=== PATIENT | male | born 1980 | race African-American/Black ===

== ENCOUNTER 2017-12-18 14:00 | Inpatient (IN) | payer OTHER ==
[2017-12-18] MEDS ORDERED: Lidocaine 2% VISCOUS* 15 ML UDC PO ONE (14:57)
[2017-12-18] MEDS ORDERED: Al Hydrox/Mg Hydrox/Simet LIQ* 30 ML UDC PO ONE (14:57)
[2017-12-18 15:26] LABS: ABS Basophils 0.1 10^3/ul (0-0.2); ABS Eosinophils 0.1 10^3/ul (0-0.6); ABS Lymphocytes 1.1 10^3/ul (1.0-4.8); ABS Monocytes 1.2 10^3/ul (0-0.8); ABS Neutrophils 6.4 10^3/ul (1.5-7.7); ABS Nucleated RBC 0 10^3/ul; Eosinophil % 0.7 % (0-6); Hematocrit 41 % (42-52); Hemoglobin 13.9 g/dl (14.0-18.0); Lymphocyte % 12.4 % (25-47); Mean Corpuscular HGB Conc 34 g/dl (31-36); Mean Corpuscular Hemoglobin 30 pg (27-31); Mean Corpuscular Volume 87 fL (80-94); Mean Platelet Volume 8 um3 (7.4-10.4); Nucleated Red Blood Cells % 0; Platelet Count 236 10^3/ul (150-450); Red Blood Count 4.72 10^6/ul (4.0-5.4); Red Cell Distribution Width 13 % (10.5-15); White Blood Count 8.7 10^3/ul (3.5-10.8)
[2017-12-18 15:32] LABS: EGFR Non-African American 103.1 (>60)
--- NOTE | 2017-12-18 15:48 | RAD ---
HISTORY: Right upper quadrant pain COMPARISONS: None TECHNIQUE: Multiple transverse and longitudinal ultrasound images were obtained of the right upper quadrant of the abdomen using grayscale and color Doppler imaging. FINDINGS: LIVER: There are multiple echogenic lesions of the liver, measuring up to 2.1 cm in size. There is normal hepatopedal flow of the portal vein on Doppler imaging. BILIARY TREE: There is no intrahepatic or extrahepatic biliary dilatation. The common duct measures 0.4 cm. GALLBLADDER: There is sludge within the gallbladder. There is gallbladder wall thickening. There is a stone in the gallbladder neck. There is a positive sonographic Castro sign. PANCREAS: The head of the pancreas is unremarkable. The tail of the pancreas is not well visualized secondary to overlying bowel gas. RIGHT KIDNEY: The right kidney is normal in shape, size, contour, and echogenicity. There is no hydronephrosis or nephrolithiasis. The right kidney measures 10.6 x 4.9 x 4.6 cm. AORTA AND IVC: The aorta and IVC are unremarkable. FLUID: There are no pleural effusions. There is no free fluid within the hepatorenal recess. OTHER FINDINGS: None. IMPRESSION: 1. ACUTE CHOLECYSTITIS. 2. MULTIPLE ECHOGENIC LIVER LESIONS MOST SUGGESTIVE OF HEMANGIOMAS. CONSIDER FURTHER EVALUATION WITH MULTIPHASE LIVER PROTOCOL CT IN THE NONACUTE SETTING
[2017-12-18] MEDS ORDERED: NS 0.9% 1000 ML* 1,000 ML IV ONE (16:07)
[2017-12-18] MEDS ORDERED: Ciprofloxacin 400MG IVPREMIX(* 400 MG/200 ML BAG IVPB ONE (16:07)
[2017-12-18] MEDS ORDERED: Morphine INJ* 4 MG/ML 1 ML CARPUJECT IV ONE (16:07)
[2017-12-18] MEDS ORDERED: Ondansetron INJ* 2 MG/ML VIAL IV ONE (16:07)
[2017-12-18] MEDS ORDERED: Ondansetron INJ* 2 MG/ML VIAL IV PRN (17:02)
[2017-12-18] MEDS ORDERED: HYDROmorphone INJ* 1 MG/ML CARPUJECT SYRINGE IV SLOW PU PRN (17:02)
[2017-12-18] MEDS: ceFOXitin 2 GM IVPREMIX* 2 GM/50 ML BAG IVPB SCH ×3 (20:22→22:03)
[2017-12-18] MEDS: Pantoprazole IV* 40 MG IV SCH (20:39)
[2017-12-18] MEDS: Ketorolac INJ* 30 MG/ML 1 ML VIAL IV PUSH PRN (20:39)
--- NOTE | 2017-12-18 23:09 | HP ---
CC: [facility] HISTORY AND PHYSICAL: DATE OF ADMISSION: 12/18/17 CHIEF COMPLAINT: Right upper quadrant abdominal pain. HISTORY OF PRESENT ILLNESS: This is a 37-year-old incarcerated male originally from [facility]. He reports a 1-week history of epigastric pain, which has been partially relieved with antacids. He has also had 6 or 7 episodes of nausea and vomiting on the first day he had his pain. He had dinner last evening at 6 p.m. and reports that he started having severe stabbing right upper quadrant abdominal pain at about midnight. He was seen by medical staff at the facility and subsequently was transported to [facility] Emergency Room. He reports anorexia. There is no dysuria, hematuria or dark urine. He had a bowel movement yesterday with no diarrhea. PAST MEDICAL HISTORY: Significant for migraines, lactose intolerance. PAST SURGICAL HISTORY: None. MEDICATIONS: 1. Ibuprofen. 2. Antacids. 3. Zyrtec. 4. Nasal spray. ALLERGIES: None known. SOCIAL HISTORY: He is not a smoker. He has used alcohol in the past. He denies drug use. He is incarcerated at [place]. FAMILY HISTORY: Father at age 77 from complications of diabetes and renal failure. Mother has history of Crohn's disease and diverticulitis. One brother is alive and well. REVIEW OF SYSTEMS: Constitutional: As above. No documented fevers. No weight loss. Respiratory: No history of asthma or wheezing. Denies tuberculosis or cough. Cardiac: No chest pain, shortness of breath, or known heart problems. GI: As above. : As above. Endocrine: No history of thyroid disorder. He states that more than 3 years ago, he was told he was prediabetic by a physician. Hematologic: No easy bruising or bleeding. No history of blood clots. PAYROLL AND BENEFITS SPECIALIST: Migraines as above. No strokes or seizures. Musculoskeletal: No joint pain, bone pain, or muscular problems. PHYSICAL EXAMINATION VITAL SIGNS: Height 5 feet 8 inches, weight 164 pounds. Temperature 98.4 degrees Fahrenheit, pulse 72, respirations 19, blood pressure 129/82, O2 sat 98 % on room air. HEENT: Head is normocephalic and atraumatic. His sclerae are anicteric and mucous membranes are moist. There is no otorrhea. No rhinorrhea. His oropharynx is clear. His tongue is midline. His dentition is intact. NECK: Symmetrical with midline trachea and no palpable lymphadenopathy or masses. LUNGS: Clear to auscultation bilaterally without wheezes, rales, or rhonchi. HEART: Regular S1, S2. No murmurs, rubs, or gallops appreciated. ABDOMEN: Without scars. Bowel sounds are present. It is softly distended with tenderness in the right upper quadrant with positive Castro sign. No hepatomegaly or splenomegaly is appreciated. EXTREMITIES: Warm without cyanosis, clubbing, or edema. LABORATORY DATA: CBC shows normal WBC, hemoglobin 13.9, hematocrit 41, platelets are 236,000. No shift. Chemistries: Electrolytes are normal except chloride low at 100. Total bilirubin normal. AST normal. ALT elevated at 55. Alkaline phosphatase elevated at 129 and C-reactive protein elevated at 170. Albumin and lipase are normal. RADIOGRAPHIC DATA: His ultrasound images were reviewed from 12/18/17. He is noted to have echogenic lesions suspicious for hemangiomas. He has a gallstone in the gallbladder neck and thickened gallbladder wall with a common bile duct that is 0.4 cm. IMPRESSION: A 37-year-old male with acute cholecystitis. PLAN/RECOMMENDATIONS: The patient is admitted to [facility] for IV antibiotics and fluids. He will be kept n.p.o. He will receive intravenous analgesics. Due to his history of epigastric pain and I will also put him on PPI. Plan will be to perform laparoscopic cholecystectomy this admission, most likely on 12/20/17. [id number]/[facility] #: [id number] [facility]PIT[facility]ilke
[2017-12-19] MEDS: ceFOXitin 2 GM IVPREMIX* 2 GM/50 ML BAG IVPB SCH ×3 (03:29→20:03)
[2017-12-19] MEDS: Ketorolac INJ* 30 MG/ML 1 ML VIAL IV PUSH PRN ×2 (03:33→10:19)
[2017-12-19 05:02] LABS: ABS Basophils 0.1 10^3/ul (0-0.2); ABS Eosinophils 0.1 10^3/ul (0-0.6); ABS Lymphocytes 1.1 10^3/ul (1.0-4.8); ABS Monocytes 0.8 10^3/ul (0-0.8); ABS Neutrophils 5.1 10^3/ul (1.5-7.7); ABS Nucleated RBC 0 10^3/ul; Eosinophil % 1.4 % (0-6); Hematocrit 38 % (42-52); Hemoglobin 12.9 g/dl (14.0-18.0); Lymphocyte % 15.6 % (25-47); Mean Corpuscular HGB Conc 34 g/dl (31-36); Mean Corpuscular Hemoglobin 30 pg (27-31); Mean Corpuscular Volume 87 fL (80-94); Mean Platelet Volume 8 um3 (7.4-10.4); Nucleated Red Blood Cells % 0; Platelet Count 215 10^3/ul (150-450); Red Blood Count 4.36 10^6/ul (4.0-5.4); Red Cell Distribution Width 13 % (10.5-15); White Blood Count 7.2 10^3/ul (3.5-10.8)
[2017-12-19 05:19] LABS: EGFR Non-African American 101.7 (>60)
[2017-12-19 06:44] LABS: Urine Appearance Clear; Urine Blood 1+ (Negative); Urine Color Yellow; Urine Ketones 1+ (Negative); Urine Protein Negative (Negative); Urine Specific Gravity 1.019 (1.010-1.030); Urine Urobilinogen Negative (Negative)
[2017-12-19] MEDS ORDERED: SUMAtriptan SQ* 6 MG/0.5 ML VIAL SUBCUT PRN (08:08)
[2017-12-19] MEDS ORDERED: D5W 1/2 NS KCl 20 Meq 1000 ML* 1,000 ML IV SCH (09:00)
--- NOTE | 2017-12-19 10:05 | PN ---
Progress Note - Progress Note Date of Service: 12/19/17 Note: Pt reported migraines to RN and has received sumatriptan and is currently sleeping. No reported N/V and was asking to eat. PE not done as pt asleep. Vital Signs Temp 98.1 F 12/19/17 07:58 Pulse 69 12/19/17 07:58 Resp 18 12/19/17 07:58 BP 139/86 12/19/17 07:58 Pulse Ox 99 12/19/17 07:58 Intake & Output 12/18/17 12/19/17 12/19/17 18:59 06:59 18:59 Intake Total 1200 Output Total 450 Balance 1200 -450 Weight 164 lb 164 lb Intake: IV Fluids 1200 Output: Urine 450 Laboratory Results - last 24 hr 12/18/17 12/18/17 12/18/17 15:03 15:03 15:03 WBC 8.7 RBC 4.72 Hgb 13.9 L Hct 41 L MCV 87 MCH 30 MCHC 34 RDW 13 Plt Count 236 MPV 8 Neut % (Auto) 73.0 Lymph % (Auto) 12.4 L [place] % (Auto) 13.2 H Eos % (Auto) 0.7 Baso % (Auto) 0.7 Absolute Neuts (auto) 6.4 Absolute Lymphs (auto) 1.1 Absolute Monos (auto) 1.2 H Absolute Eos (auto) 0.1 Absolute Basos (auto) 0.1 Absolute Nucleated RBC 0 Nucleated RBC % 0 Sodium 135 Potassium 3.8 Chloride 100 L Carbon Dioxide 25 Anion Gap 10 BUN 12 Creatinine 0.83 Est GFR ( Amer) 132.6 Est GFR (Non-Af Amer) 103.1 BUN/Creatinine Ratio 14.5 Glucose 96 Lactic Acid 0.9 Calcium 9.3 Total Bilirubin 0.60 AST 25 ALT 55 H Alkaline Phosphatase 129 H C-Reactive Protein 170.91 H Total Protein 7.2 Albumin 3.4 Globulin 3.8 Albumin/Globulin Ratio 0.9 L Lipase 27 Urine Color Urine Appearance Urine pH Ur Specific [place] Urine Protein Urine Ketones Urine Blood Urine Nitrate Urine Bilirubin Urine Urobilinogen Ur Leukocyte Esterase Urine WBC (Auto) Urine RBC (Auto) Urine Bacteria Urine Glucose 12/19/17 12/19/17 12/19/17 00:50 04:54 04:54 WBC 7.2 RBC 4.36 Hgb 12.9 L Hct 38 L MCV 87 MCH 30 MCHC 34 RDW 13 Plt Count 215 MPV 8 Neut % (Auto) 70.5 Lymph % (Auto) 15.6 L [place] % (Auto) 11.8 H Eos % (Auto) 1.4 Baso % (Auto) 0.7 Absolute Neuts (auto) 5.1 Absolute Lymphs (auto) 1.1 Absolute Monos (auto) 0.8 Absolute Eos (auto) 0.1 Absolute Basos (auto) 0.1 Absolute Nucleated RBC 0 Nucleated RBC % 0 Sodium 135 Potassium 4.1 Chloride 103 Carbon Dioxide 27 Anion Gap 5 BUN 15 Creatinine 0.84 Est GFR ( Amer) 130.8 Est GFR (Non-Af Amer) 101.7 BUN/Creatinine Ratio 17.9 Glucose 92 Lactic Acid Calcium 8.5 L Total Bilirubin 0.60 AST 17 ALT 38 Alkaline Phosphatase 103 C-Reactive Protein Total Protein 6.0 L Albumin 2.8 L Globulin 3.2 Albumin/Globulin Ratio 0.9 L Lipase Urine Color Yellow Urine Appearance Clear Urine pH 6.0 Ur Specific [place] 1.019 Urine Protein Negative Urine Ketones 1+ H Urine Blood 1+ H Urine Nitrate Negative Urine Bilirubin Negative Urine Urobilinogen Negative Ur Leukocyte Esterase Negative Urine WBC (Auto) Trace(0-5/hpf) Urine RBC (Auto) Absent Urine Bacteria Absent Urine Glucose Negative IMP: Acute cholecystitis. Improving on IV abx. Plan: Lap jahaira 12/20/17. Clears ok until then. Cont IV abx.
[2017-12-19] MEDS: Pantoprazole IV* 40 MG IV SCH (20:00)
[2017-12-20] MEDS: D5W 1/2 NS KCl 20 Meq 1000 ML* 1,000 ML IV SCH ×2 (02:25→23:27)
[2017-12-20] MEDS: ceFOXitin 2 GM IVPREMIX* 2 GM/50 ML BAG IVPB SCH ×3 (04:10→19:57)
--- NOTE | 2017-12-20 09:08 | PN ---
Progress Note - Progress Note Date of Service: 12/20/17 SOAP: Subjective: Patient was seen and examined at bedside. Reports doing better today. Pain is tolerated, no nausea or vomiting. Denies fever or chills. Objective: Awake and alert, comfortable in bed, 2 guards present in room VSS, afebrile Abdomen soft, ND. Mild RUQ tenderness with guarding and positive Castro's sign. Assessment: Acute cholecystitis Plan: OR later this afternoon for laparoscopic cholecystectomy. Rationale, indications and benefits discussed, patient agreed to plans.
[2017-12-20] MEDS ORDERED: Bupivacaine 0.25% SDV* 30 ML ONE (14:18)
[2017-12-20] MEDS ORDERED: Midazolam concentrated* 5 MG/ML 1 ml VIAL ONE (14:42)
[2017-12-20] MEDS ORDERED: fentaNYL* 50 MCG/ML 2 ML VIAL (100 MCG VIAL) ONE ×2 (14:48→15:10)
[2017-12-20] MEDS ORDERED: Rocuronium* 10 MG/ML VIAL ONE ×2 (14:54→15:55)
[2017-12-20] MEDS ORDERED: Dexamethasone IV* 4 MG/ML 1 ML (4 MG) ONE (15:09)
[2017-12-20] MEDS ORDERED: Ondansetron INJ* 2 MG/ML VIAL ONE (15:09)
[2017-12-20] MEDS ORDERED: Lidocaine 2% PF * 5 ML VIAL ONE (15:09)
[2017-12-20] MEDS ORDERED: Succinylcholine* 20 MG/ML 10 ML VIAL ONE (15:09)
[2017-12-20] MEDS ORDERED: Ketorolac INJ* 30 MG/ML 1 ML VIAL ONE (15:09)
[2017-12-20] MEDS ORDERED: Propofol* 10 MG/ML 20 ML BTL IV PUSH ONE (15:09)
[2017-12-20] MEDS ORDERED: ceFAZolin 1 GM VIAL(*) ONE (15:16)
[2017-12-20] MEDS ORDERED: Acetaminophen IV 1GM/100ML * 1,000 MG/100 ML VIAL IVPB ONE (15:27)
[2017-12-20] MEDS ORDERED: Naloxone* 0.4 MG/ML 1 ML VIAL IV PRN (15:27)
[2017-12-20] MEDS ORDERED: DiMENhydriNATE IV* 50 MG/ML VIAL IV PUSH PRN (15:27)
[2017-12-20] MEDS ORDERED: HYDROmorphone INJ* 1 MG/ML CARPUJECT SYRINGE IV PRN (15:27)
[2017-12-20] MEDS ORDERED: Neostigmine Methylsulfate* 2 MG/2 ML SYRINGE ONE (16:38)
[2017-12-20] MEDS ORDERED: Glycopyrrolate IV* 0.2 MG/ML 1 ML VIAL ONE (16:38)
[2017-12-20] MEDS ORDERED: HYDROmorphone INJ* 1 MG/ML CARPUJECT SYRINGE ONE (16:49)
[2017-12-20] MEDS ORDERED: Acetaminophen IV 1GM/100ML * 100 ML ONE (17:07)
[2017-12-20] MEDS ORDERED: Acetaminophen TAB* 325 MG PO PRN (17:18)
[2017-12-20] MEDS ORDERED: oxyCODONE/Acetamin 5/325 MG* TAB PO PRN (17:19)
[2017-12-20] MEDS ORDERED: HYDROmorphone INJ* 2 MG/ML CARPUJECT SYRINGE IV SLOW PU PRN (17:58)
[2017-12-20] MEDS: Pantoprazole IV* 40 MG IV SCH (19:54)
[2017-12-21] MEDS: ceFOXitin 2 GM IVPREMIX* 2 GM/50 ML BAG IVPB SCH ×3 (04:03→19:49)
[2017-12-21] MEDS: Ketorolac INJ* 30 MG/ML 1 ML VIAL IV PUSH PRN (06:42)
--- NOTE | 2017-12-21 08:31 | PN ---
Progress Note - Progress Note Date of Service: 12/21/17 SOAP: Subjective: Doing well with minimal pain Tolerating liquids po, no N/V Objective: Temp Pulse Resp BP Pulse Ox 98.1 F 67 16 102/66 99 12/21/17 07:35 12/21/17 07:35 12/21/17 07:45 12/21/17 07:35 12/21/17 07:35 Intake & Output 12/19/17 12/20/17 12/21/17 12/22/17 06:59 06:59 06:59 06:59 Intake Total 1200 3580 3104 210 Output Total 450 3545 2210 500 Balance 750 35 894 -290 Weight 164 lb 164 lb Intake: IV Fluids 6826 801 1566 D5W 1/2 NS 20 meq KCL 975 634 LR 1800 NS 50ML, Cefazolin 2G 50 Oral 2605 620 210 Output: WIN #1 60 Urine 450 3545 2150 500 Other: # Bowel Movements 0 Estimated Blood Loss MINIMAL Comment PEX: Comfortable Lungs are clear Abd is soft and non-distended. Bowel sounds are present Incisions are clean and dry with some serous drainage on gauze around the WIN drain WIN in place with small amount of serosanguinous drainage in bulb-not bilious No labs Assessment: POD# 1 s/p laparoscopic subtotal cholecystectomy with drain placement for acute calculous cholecystitis Plan: IV anbiotics WIN drain Increase activity, pulmonary toilet subq heparin Not ready for d/c today--will be discharged with WIN drain in and will need to coordinate with [facility] for management of drain as outpatient.
[2017-12-21 10:19] LABS: ABS Basophils 0 10^3/ul (0-0.2); ABS Eosinophils 0 10^3/ul (0-0.6); ABS Lymphocytes 1.5 10^3/ul (1.0-4.8); ABS Monocytes 0.6 10^3/ul (0-0.8); ABS Neutrophils 11.6 10^3/ul (1.5-7.7); ABS Nucleated RBC 0 10^3/ul; Eosinophil % 0.1 % (0-6); Hematocrit 40 % (42-52); Hemoglobin 13.6 g/dl (14.0-18.0); Lymphocyte % 11.2 % (25-47); Mean Corpuscular HGB Conc 34 g/dl (31-36); Mean Corpuscular Hemoglobin 30 pg (27-31); Mean Corpuscular Volume 87 fL (80-94); Mean Platelet Volume 7 um3 (7.4-10.4); Nucleated Red Blood Cells % 0; Platelet Count 310 10^3/ul (150-450); Red Blood Count 4.59 10^6/ul (4.0-5.4); Red Cell Distribution Width 13 % (10.5-15); White Blood Count 13.8 10^3/ul (3.5-10.8)
[2017-12-21 10:41] LABS: EGFR Non-African American 103.1 (>60)
[2017-12-21 10:42] LABS: INR 1.12 (0.77-1.02)
[2017-12-21] MEDS: oxyCODONE/Acetamin 5/325 MG* TAB PO PRN ×2 (14:28→22:46)
[2017-12-21] MEDS: Heparin VIAL(*) 5000 UNITS/ML VIAL (FIVE THOUSAND) SUBCUT SCH ×2 (14:28→22:48)
--- NOTE | 2017-12-21 15:02 | PN ---
Progress Note - Progress Note Date of Service: 12/21/17 SOAP: Subjective: [The patient reports his pain is controlled and that he is ambulating frequently. The pt reports he is tolerating the low fat diet and denies any nausea/vomiting. ] Objective: [ Vital Signs Temp 98.9 F 12/21/17 11:33 Pulse 86 12/21/17 11:33 Resp 16 12/21/17 14:28 BP 130/73 12/21/17 11:33 Pulse Ox 97 12/21/17 11:33 Intake & Output 12/20/17 12/21/17 12/21/17 18:59 06:59 18:59 Intake Total 2470 634 755 Output Total 400 1810 1100 Balance 7610 -8456 -345 Intake: IV Fluids 1850 634 D5W 1/2 NS 20 meq KCL 634 LR 1800 NS 50ML, Cefazolin 2G 50 Oral 620 0 755 Output: WIN #1 60 Urine 400 1750 1100 Other: Estimated Blood Loss MINIMAL Comment Laboratory Results - last 24 hr 12/21/17 12/21/17 12/21/17 09:44 09:44 09:44 WBC 13.8 H RBC 4.59 Hgb 13.6 L Hct 40 L MCV 87 MCH 30 MCHC 34 RDW 13 Plt Count 310 MPV 7 L Neut % (Auto) 84.1 H Lymph % (Auto) 11.2 L [place] % (Auto) 4.4 Eos % (Auto) 0.1 Baso % (Auto) 0.2 Absolute Neuts (auto) 11.6 H Absolute Lymphs (auto) 1.5 Absolute Monos (auto) 0.6 Absolute Eos (auto) 0 Absolute Basos (auto) 0 Absolute Nucleated RBC 0 Nucleated RBC % 0 INR (Anticoag Therapy) 1.12 H APTT 27.8 BUN 7 Creatinine 0.83 Est GFR ( Amer) 132.6 Est GFR (Non-Af Amer) 103.1 Vitals Reviewed: Stable General: The patient was lying in bed General: A&O x3 Heart: RRR, no murmur Lungs: Clear to auscultation bilaterally Abdomen: Non-distended, mild incisional tenderness. The area around the WIN drain contained some blood tinged gauze, the WIN drain contained serosanguineous fluid with a trace of bile. ] Assessment: [This is a 37 y.o male POD #1 s/p partial laparascopic cholecystectomy who is currently stable. ] Plan: [- Continue current care - Continue WIN drain - Continue IV antibiotic - Continue DVT prophylaxis
--- NOTE | 2017-12-21 19:00 | OP ---
CC: [facility] * DATE OF OPERATION: 12/20/17 - ROOM #333 DATE OF : 76 SURGEON: Barry Ferris MD BALANCE TRUING INSPECTOR: SHAVONNE Pizano ANESTHESIOLOGIST: Dr. Yifan Sarmiento. ANESTHESIA: General with local anesthetic. PRE-OP DIAGNOSIS: Acute calculus cholecystitis. POST-OP DIAGNOSIS: Acute calculus cholecystitis. OPERATIVE PROCEDURE: Laparoscopic subtotal cholecystectomy, fenestrated technique. ESTIMATED BLOOD LOSS: Minimal. DRAINS: #10 WIN drain in the right upper quadrant. WOUND CLASSIFICATION: 3. COMPLICATIONS: None. SPECIMENS: Portion of gallbladder with 1 large contained gallstone. IV FLUIDS: 1 L of crystalloids. FINDINGS: The patient had severe acute calculous cholecystitis, which after extensive dissection did not appear to be amenable to a laparoscopic cholecystectomy due to the amount of inflammation in the infundibular area and thus a subtotal cholecystectomy was performed with removal of the large stone within the gallbladder and the anterior portion of the gallbladder and a drain was placed. BRIEF HISTORY: Mr. Dakota Parry is a 37-year-old gentleman who presented to the emergency room yesterday with 4 to 5 days of epigastric right upper quadrant abdominal discomfort. This was associated with some reflux disease, but no pain in the back. He has no fever, shakes, or chills noted, no jaundice. On exam, he was noted to have right upper quadrant abdominal tenderness quite localized. He had a normal white blood cell count and mild elevation of liver transaminases and C- reactive protein, but his bilirubin was normal. He underwent an ultrasound of his gallbladder, which showed a markedly thickened gallbladder wall with a large stone apparently in the neck of the gallbladder with associated sludge and some inflammation surrounding the gallbladder itself. He was admitted to the surgical service and started on IV antibiotics and kept n.p.o. Plan today is for a laparoscopic cholecystectomy for treatment of his acute calculous cholecystitis. The procedure was discussed with the patient and the risks, but are not limited to bleeding, infection, intraabdominal abscess formation, injury to peritoneal and retroperitoneal structures, common bile injury requiring further surgical reconstruction, bile leak, abscess, risk of pneumonia, deep vein thrombosis, and pulmonary embolism were all explained. In addition, the alternative of IV antibiotics were discussed; however, this was not felt to be a reasonable opportunity with a large gallstone in the neck of the gallbladder and the significance of the ultrasound findings as well as his clinical exam. The patient understands and gives his consent to proceed. DESCRIPTION OF PROCEDURE: Written informed consent was obtained, the abdomen was marked with indelible ink, and preoperative antibiotics were administered. The patient was taken to the operating room and placed in the supine position. Sequential compression devices and warming blanket were applied. General anesthesia was administered and the abdomen was prepped and draped in the usual sterile fashion. Time-out verification was completed. Initially, a small transverse incision was made just above the umbilicus at the midline and the peritoneal cavity was entered under direct vision. A 12-mm blunt port was inserted and the abdomen was insufflated to 15 mmHg. An 11 mm epigastric port was placed and two 5 mm ports were placed in the right side of the abdominal wall. It was immediately evident that the liver appeared to be normal. There was omentum adherent and attached to the gallbladder right up to the top of the liver. This was taken down using a combination of sharp and blunt dissection with some use of cautery. It was obvious that the gallbladder was quite thick walled, maldonado in color, fluid around the gallbladder, all findings consistent with acute calculous cholecystitis. It should be noted also on the preoperative ultrasound that there were some liver lesions, most likely consistent with hemangiomas, although these appeared to be intraparenchymal and I noted no abnormal findings on the surface of the liver on either the right or the left lobe. The gallbladder was able to be grasped at the top portion and elevated up off the liver bed; however, in removing the omentum from top to bottom, it became progressively more thick walled with significant amount of inflammation that bled easily and it was difficult to identify the anatomy of the gallbladder; however, I was able to feel what appeared to be most likely the infundibulum, and this as it went deeper into the portal area, the inflammation became more severe and difficult to bluntly dissect. After attempting to divide the thickened peritoneum along the mid and lower aspects I was not able to make progress to identify where the gallbladder would taper to the cystic duct and I felt that the inflammatory process was much too great to consider performing a complete cholecystectomy and thus made a decision to proceed with the subtotal cholecystectomy. Thus, anterior gallbladder wall at about its midportion was opened with cautery. There was really no bile in the gallbladder itself, but there was a large 2.5 cm stone, which was retrieved and placed in Endo Catch bag and brought out through the umbilical incision. There was some small amount of mucus material in the gallbladder, but like as mentioned no copious amount of bile or even white bile or sludge, and I proceeded to take the anterior wall of the gallbladder from the top down to the area, which appeared to begin to taper toward what was probably the cystic duct and this was the divided and removed with cautery and placed in Endo Catch bag and sent as specimen. Hemostasis along the cut edges, the raw edges of the gallbladder was controlled with cautery. I did identify what appeared to be the cystic artery and this was clipped and controlled. After this was complete I still did not feel comfortable attempting to dissect more proximally towards the cystic duct. I thus left the probable small portion of the gallbladder infidibulum above the cystic duct in-situ and did not attempt to close this, thus using the "fenestrating" technique. With this in mind, the right upper quadrant was irrigated thoroughly. There was no bile leak from the cystic duct. I did not attempt to try to close this or clip this at this level as mentioned above. Hemostasis was assured. A #10 WIN drain was then placed in the right upper quadrant, brought out through the lateral 5 mm port site on the right side. Hemostasis was then assured. All ports were removed under direction vision of the camera. There was no abdominal wall bleeding. The umbilical fascia was closed with interrupted 0 Vicryl suture. The skin at all three incisions was approximated with subcuticular 4-0 Vicryl suture. Steri-Strips were applied. The patient tolerated the procedure well and was taken to the recovery room in stable condition. [id number]/[facility] #: [id number] [facility]ENTERSilke
[2017-12-21] MEDS: Pantoprazole IV* 40 MG IV SCH (19:49)
[2017-12-22] MEDS: ceFOXitin 2 GM IVPREMIX* 2 GM/50 ML BAG IVPB SCH ×3 (03:54→19:15)
[2017-12-22] MEDS: Heparin VIAL(*) 5000 UNITS/ML VIAL (FIVE THOUSAND) SUBCUT SCH ×3 (06:21→21:38)
[2017-12-22] MEDS: oxyCODONE/Acetamin 5/325 MG* TAB PO PRN (07:26)
[2017-12-22] MEDS: Ketorolac INJ* 30 MG/ML 1 ML VIAL IV PUSH PRN ×2 (12:00→19:15)
--- NOTE | 2017-12-22 13:49 | PN ---
Progress Note - Progress Note Date of Service: 12/22/17 SOAP: Subjective: Doing well-tolerated po well and had a BM this morning. Ambulating in halls Pain is adequately controlled Objective: Temp Pulse Resp BP Pulse Ox 98.5 F 82 15 143/80 97 12/22/17 11:23 12/22/17 11:23 12/22/17 11:23 12/22/17 11:23 12/22/17 11:23 Intake & Output 12/20/17 12/21/17 12/22/17 12/23/17 06:59 06:59 06:59 06:59 Intake Total 3580 3104 1715 320 Output Total 3545 2210 1150 Balance 35 894 565 320 Weight 164 lb Intake: IV Fluids 975 2484 D5W 1/2 NS 20 meq KCL 975 634 LR 1800 NS 50ML, Cefazolin 2G 50 Oral 2605 620 1715 320 Output: WIN #1 60 50 Urine 3545 2150 1100 Other: Estimated Void Medium # Bowel Movements 0 Estimated Blood Loss MINIMAL Comment # Voids 1 PEX: Comfortable Lungs are clear Abd is soft and non-distended. Incisions are clean and dry, bowel sounds are present WIN in place with small amount of serosanguinous fluid in bulb--non-bilious Ext without edema No labs Assessment: POD# 2 s/p lap partial cholecystectomy with drain placement Plan: Continue IV abx for another 24 hours Plan d/c back to [place] tomorrow on oral antibiotics and with drain in place Follow up office next week.
[2017-12-23] MEDS: ceFOXitin 2 GM IVPREMIX* 2 GM/50 ML BAG IVPB SCH (04:02)
[2017-12-23] MEDS: Heparin VIAL(*) 5000 UNITS/ML VIAL (FIVE THOUSAND) SUBCUT SCH (05:20)
[2017-12-23 07:36] VITALS: BP 131/75
--- NOTE | 2017-12-23 09:06 | PN ---
Progress Note - Progress Note Date of Service: 12/23/17 SOAP: Subjective: Patient seen and examined at bedside. Reports feeling well, ambulatory. Just finished breakfast, tolerating diet. Has no complaints. Objective: Awake and alert, in NAD VSS, afebrile Abdomen soft, NT, ND. Incisions C/D/I. WIN with 10cc serosangiounous output. Assessment: POD#3, s/p laparoscopic cholecystectomy, doing well. Plan: [facility] 7 days Ibuprofen as needed for pain or fever F/U in office next week.
== END 2017-12-23 13:15 | DRG 263 ==
LOC: ED 14:00 → SSU 17:01 → EEVIPCON 17:01
PROVIDERS: ADMIT Surgery; ATTEND Surgery
PROC: 0FB44ZZ Excision of Gallbladder, Percutaneous Endoscopic Approach (ICD-10-PCS; principal; 2017-12-18)
DX: K80.00 Calculus of gallbladder with acute cholecystitis without obstruction (principal); E73.9 Lactose intolerance, unspecified; G43.909 Migraine, unspecified, not intractable, without status migrainosus; K76.9 Liver disease, unspecified; Z83.3 Family history of diabetes mellitus; Z84.1 Family history of disorders of kidney and ureter; Z83.79 Family history of other diseases of the digestive system
CPT/HCPCS: 36415; 76705; 80053; 81003; 81015; 82565; 83605; 83690; 84520; 85025; 85610; 85730; 86140; 88304; A9270-GY; J0330; J0690; J0694; J0744; J1100; J1170; J1644; J1885; J2250; J2270; J2405; J2704; J3010; J3030